=== PATIENT | male | born 1960 | race African-American/Black ===

== ENCOUNTER 2018-02-28 12:06 | Emergency (ER) | payer BC, OTHER ==
[~2018-02-28] VITALS: Ht 188 cm; Wt 120.2 kg
[2018-02-28 12:51] VITALS: BP 135/91
== END 2018-02-28 15:18 | disposition home or self-care (01) ==
LOC: ER 12:06
DX: M25.551 Pain in right hip (principal); I10 Essential (primary) hypertension
CPT/HCPCS: 73502